=== PATIENT | female | born 1980 | race Caucasian/White ===

== ENCOUNTER 2017-04-29 19:14 | Emergency (ER) | payer OTHER ==
[~2017-04-29] VITALS: Ht 167.6 cm; Wt 72.6 kg
[~2017-04-29 19:14] MED LIST: CALCIUM OYSTER500 MG PO; CIPROFLOXACIN500 M1 PO; FERROUS SULFAT325 M1 PO; FOSAMAX 35 MG35 M1 PO; ONDANSETRON ODT4 MG PO; PERCOCET 5-3251 EACH PO; PREDNISONE 10 M10 M1 PO; ULTRAM 50MG TAB50 MG PO
[2017-04-29] MEDS ORDERED: VALIUM2 MG PO (19:57)
[2017-04-29] MEDS ORDERED: NORCO 5-325 TA1 EACH PO (19:57)
[2017-04-29 20:46] VITALS: BP 115/73
== END 2017-04-29 20:47 | disposition home or self-care (01) ==
LOC: ER 19:14
DX: S39.012A Strain of muscle, fascia and tendon of lower back, initial encounter (principal); X58.XXXA Exposure to other specified factors, initial encounter; Y93.89 Activity, other specified; Y92.89 Other specified places as the place of occurrence of the external cause; Y99.8 Other external cause status